=== PATIENT | female | born 1965 | race Caucasian/White ===

== ENCOUNTER → 2018-04-17 19:01 | Outpatient (REF) | payer OTHER, SELFPAY ==
[2018-04-17 19:24] LABS: Add Manual Diff / Slide Review NO; Basophils Absolute Auto 0 /uL (0-100); Basophils Percent Auto 0.6 % (0-2); Eosinophils Absolute Auto 100 /uL (0-450); Eosinophils Percent Auto 1.2 % (2-4); Hematocrit 41.8 % (36-46); Hemoglobin 14.4 g/dL (12.0-16.0); Lymphocytes Absolute Auto 1800 /uL (1100-4500); Lymphocytes Percent Auto 36.2 % (25-40); Mean Corpuscular HGB Conc 34.4 % (30-36); Mean Corpuscular Volume 87.5 fL (80-100); Monocytes Absolute Auto 500 /uL (0-900); Monocytes Percent Auto 9.3 % (3-14); Neutrophils Absolute Auto 2600 /uL (1500-7000); Neutrophils Percent Auto 52.7 % (50-75); Platelet Count 151 X10^3/uL (150-400); Red Blood Cell Count 4.78 X10^6/uL (4.0-5.2); Red Cell Distribution Width 12.7 % (11.6-14.8); White Blood Cell Count 4.9 X10^3/uL (4.5-11.0)
[2018-04-17 19:35] LABS: Alanine Aminotransferase 29 IU/L (9-52); Albumin 4.5 g/dL (3.5-5.0); Albumin Globulin Ratio 1.9 (1.0-2.8); Alkaline Phosphatase 85 U/L (38-126); Aspartate Aminotransferase 18 IU/L (14-36); Bilirubin Total 0.4 mg/dL (0.2-1.3); Blood Urea Nitrogen 11 mg/dL (7-17); Calcium 9.6 mg/dL (8.4-10.2); Carbon Dioxide 26 mmol/L (22-32); Chloride 102 mmol/L (98-107); Estimated Glomerular Filt Rate 57.8 mL/min (>60); Globulin 2.4 g/dL (1.7-4.1); Glucose 118 mg/dL (70-100); HEMOLYSIS < 15 (0-50); Sodium 139 mmol/L (137-145); Total Protein 6.9 g/dL (6.3-8.2)
[2018-04-17 19:45] LABS: Vitamin D 25 Hydroxy (D3) 36.9 ng/mL (30.0-100.0)
[2018-04-17 19:59] LABS: Thyroid Stimulating Hormone 2.82 uIU/mL (0.47-4.68)
== END ==
LOC: LAB 19:01
PROVIDERS: PCP Physician Assistant Medical; Visit Provider Physician Assistant Medical
DX: E55.9 Vitamin D deficiency, unspecified (principal); M79.7 Fibromyalgia; Z13.29 Encounter for screening for other suspected endocrine disorder; R53.82 Chronic fatigue, unspecified
CPT/HCPCS: 36415; 80053; 82306; 84443; 85025

== ENCOUNTER → 2021-06-15 17:59 | Outpatient (CLI) | payer OTHER, SELFPAY ==
--- NOTE | 2021-06-15 | DI.MRI.S_ITS ---
PROCEDURE: MR CERVICAL SPINE WO CON INDICATIONS: Radiculopathy, cervical region TECHNIQUE: Noncontrast sagittal T1 spin echo and T2 fast spin echo, sagittal STIR, foraminal oblique sagittal T2 fast spin echo, and axial gradient echo or T2 fast spin echo through the cervical spine. COMPARISON: [facility], MR, C-SPINE WITHOUT CONTRAST, 12/01/2016, 14:36. FINDINGS: Image quality: Excellent. Alignment and Curvature: Trace degenerative anterolisthesis of C5 on C6. Bone Marrow: Marrow demonstrates normal overall signal. Spinal Cord: Visualized spinal cord has normal size and signal. No cerebellar tonsillar herniation. Paraspinous Soft Tissues: No paravertebral masses. Prevertebral soft tissues are normal in thickness. C2-C3: No canal stenosis or foraminal stenosis. C3-C4: No canal stenosis or foraminal stenosis. C4-C5: Stable findings. Very mild disc height loss. Disc bulge. Mild bilateral uncovertebral joint hypertrophy. Mild left facet hypertrophy. No canal stenosis or foraminal stenosis. C5-C6: Mild chronic disc height loss. Diffuse disc bulge. Disc material abuts the cord. There is no canal stenosis. AP diameter of the canal is 11.6 mm. Mild bilateral uncovertebral joint hypertrophy. Mild left facet hypertrophy. Iana-lw-[id number] left foraminal narrowing with mild flattening deformity on the exiting left C6 nerve root. C6-C7: Moderate to severe chronic disc height loss. Diffuse disc bulge. Disc material mildly indents on the left ventral cord. Mild canal stenosis. Left uncovertebral joint osteophyte with very mild superimposed left foraminal disc protrusion. Moderate left foraminal narrowing with mild flattening deformity on the exiting left C7 nerve root. Left foraminal narrowing has progressed since the previous study. C7-T1: No canal stenosis or foraminal stenosis. IMPRESSION: 1. Cervical spondylitic change, predominantly from C4-C5 through C6-C7. 2. As before, there is mild canal stenosis at C6-C7. There is moderate left foraminal narrowing at that level. Left foraminal narrowing is progressed. Dictated by: German Rose M.D. on 06/16/2021 at 9:52 Approved by: German Rose M.D. on 06/16/2021 at 10:10
== END ==
PROVIDERS: PCP Physician Assistant Medical; Referring Provider Physician Assistant Medical; Visit Provider Physician Assistant Medical
DX: M47.22 Other spondylosis with radiculopathy, cervical region (principal); M48.02 Spinal stenosis, cervical region
CPT/HCPCS: 72141